=== PATIENT | female | born 1965 ===

== ENCOUNTER 2023-10-12 23:03 | Emergency (ER) | payer OTHER, MEDICAID ==
[~2023-10-12] VITALS: Ht 160 cm; Wt 60.9 kg
[2023-10-12 23:07] VITALS: BP 170/90; PULSE 90; RESP 16; TEMP 97.9
[2023-10-12] MEDS ORDERED: CERT200K PO (23:24)
[2023-10-13 00:28] LABS: BASOPHILS % (AUTO) 0.7 % (0.0-2.0); EOSINOPHILS % (AUTO) 6.5 % (1.0-6.0); HEMATOCRIT 42.2 % (36-46); HEMOGLOBIN 13.8 g/dL (12.0-16.0); LYMPHOCYTES # (AUTO) 2.9 K/uL (1.0-4.8); LYMPHOCYTES % (AUTO) 56.3 % (22.0-44.0); MEAN CORPUSCULAR HEMOGLOBIN 29.3 pg (26.0-34.0); MEAN CORPUSCULAR HGB CONC 32.6 G/dL (31.0-37.0); MEAN CORPUSCULAR VOLUME 90 fL (80-100); MONOCYTES # (AUTO) 0.5 K/uL (0.1-1.0); MONOCYTES % (AUTO) 9.6 % (2.0-9.0); NEUTROPHILS # (AUTO) 1.4 K/uL (1.8-7.7); NEUTROPHILS % (AUTO) 26.9 % (40.0-70.0); PLATELET COUNT (AUTO) 109 K/uL (150-450); RED CELL DISTRIBUTION WIDTH 15.1 % (11.5-14.5); WHITE BLOOD COUNT (AUTO) 5.1 K/uL (4.5-11.0)
[2023-10-13 00:44] LABS: ANION GAP 3 mmol/L (8-16); CALCIUM, TOTAL 8.6 mg/dL (8.8-10.5); CARBON DIOXIDE 33 mmol/L (22-29); CHLORIDE 105 mmol/L (98-107); CREATININE 0.46 mg/dL (0.60-1.30); GLOMERULAR FILTR. RATE CALC > 60 mL/min (>60); GLUCOSE,RANDOM 118 mg/dL (70-110); POTASSIUM 3.9 mmol/L (3.5-5.1); SODIUM SERUM 141 mmol/L (136-145); UREA NITROGEN, BLOOD 18 mg/dL (7-18)
[2023-10-13] MEDS ORDERED: GABA-1216 PO (01:42)
[2023-10-13] MEDS: ACETAMINOPHEN/CODEINE 300-30 MG TABLET PO ONE (02:01)
== END 2023-10-13 02:14 | disposition home or self-care (01) ==
LOC: EMS 23:03
DX: M79.661 Pain in right lower leg (principal); M79.662 Pain in left lower leg; Z87.39 Personal history of other diseases of the musculoskeletal system and connective tissue
CPT/HCPCS: 80048; 85025; 99283